=== PATIENT | female | born 1950 | race Caucasian/White ===

== ENCOUNTER 2024-04-20 04:04 | Emergency (ER) | payer MEDICARE ==
[~2024-04-20] VITALS: Ht 147.3 cm; Wt 52.0 kg
[2024-04-20 04:06] VITALS: TEMP 98
[2024-04-20 07:10] VITALS: BP 126/70; PULSE 78; RESP 12; O2SAT 98
[2024-04-20] MEDS: acetaminophen 325mg tablet PO ONE (07:21)
== END 2024-04-20 09:00 | disposition home or self-care (01) ==
LOC: ER 04:05
DX: M54.6 Pain in thoracic spine (principal); M25.551 Pain in right hip; Z88.8 Allergy status to other drugs, medicaments and biological substances; Z98.890 Other specified postprocedural states; W18.39XA Other fall on same level, initial encounter; Y93.89 Activity, other specified; Y92.89 Other specified places as the place of occurrence of the external cause; Y99.8 Other external cause status
CPT/HCPCS: 72070; 72100; 93005; 99284